=== PATIENT | female | born 1990 | race Caucasian/White ===

== ENCOUNTER 2018-10-17 15:28 | Emergency (ER) | payer BC ==
[~2018-10-17] VITALS: Ht 175.3 cm; Wt 59.0 kg
[2018-10-17] MEDS ORDERED: ALLERGY MEDICAT25 MG PO (15:53)
== END 2018-10-17 17:00 | disposition home or self-care (01) ==
LOC: ED 15:28
DX: S16.1XXA Strain of muscle, fascia and tendon at neck level, initial encounter (principal); Z91.048 Other nonmedicinal substance allergy status; Y04.8XXA Assault by other bodily force, initial encounter
CPT/HCPCS: 70490; 99284-25

== ENCOUNTER 2019-10-06 20:01 | Emergency (ER) | payer BC ==
[~2019-10-06] VITALS: Ht 175.3 cm; Wt 59.0 kg
[~2019-10-06 20:01] MED LIST: ALLERGY MEDICAT25 MG PO
[2019-10-06] MEDS ORDERED: ZOFRAN4 MG PO (21:59)
== END 2019-10-06 22:13 | disposition home or self-care (01) ==
LOC: ED 20:01
DX: K52.9 Noninfective gastroenteritis and colitis, unspecified (principal); Z88.8 Allergy status to other drugs, medicaments and biological substances; Z79.899 Other long term (current) drug therapy
CPT/HCPCS: 51701; 80053; 81001; 83690; 84703; 85025; 99284-25; J7030